=== PATIENT | female | born 1940 | race American Indian/Alaskan Native ===

== ENCOUNTER 2018-04-03 13:30 | Emergency (ER) | payer MEDICARE ==
--- NOTE | 2018-04-03 14:24 | Emergency Department Report ---
Eye Injury/Foreign Body - HPI Duration: 3 Days Eye Location: Right Severity: Mild Eye Symptoms: Eye Pain: No, Blurred Vision: No, Eye Redness: Yes, Grinding/Hammering Metal: No, Used Eye Protection: No, Contact Lens Use: No, Recalls Injury: No, Photophobia: No Other History: Patient is on Coumadin but denies having any injury to the eye. Patient denies any headache. Patient did get a iron infusion several days ago. ED Review of Systems ROS: Stated complaint: (R) EYE IRRIATION Other details as noted in HPI Comment: All other systems reviewed and negative ED Past Medical Hx - Past Medical History Hx Hypertension: Yes Hx Congestive Heart Failure: Yes Hx Diabetes: Yes Hx Asthma: Yes Additional medical history: mass on breast, Afib - Surgical History Hx Cholecystectomy: Yes (Gall stones) Hx Breast Surgery: Yes Additional Surgical History: Breast biopsy- positive for cancer - Social History Smoking Status: Never Smoker Substance Use Type: None - Medications Home Medications: Home Medications Medication Instructions Recorded Confirmed Last Taken Type Esomeprazole Magnesium [NexIUM] 40 mg PO DAILY 06/28/13 10/30/15 10/29/15 History Rosuvastatin (Nf) [Crestor] 20 mg PO DAILY 06/28/13 10/30/15 10/29/15 History Warfarin [Coumadin] 5 mg PO DAILY 06/28/13 10/30/15 10/29/15 History Insulin Glargine,Hum.rec.anlog 15 units SUB-Q HS #30 06/30/13 10/30/15 10/29/15 Rx [Lantus] Tamoxifen Citrate 20 mg PO QDAY 08/04/13 10/30/15 10/29/15 History ALBUTEROL Inhaler (OR & NICU) 2 puff IH QID PRN 10/30/15 10/30/15 10/29/15 History [Proair] ALPRAZolam [Xanax TAB] 0.25 mg PO BID 10/30/15 10/30/15 10/29/15 History Metoprolol Xl [Metoprolol 25 mg PO QDAY 10/30/15 10/30/15 10/29/15 History SUCCINATE ER TAB] Nystatin [Nystop Powder] 1 applicatio TP BID 10/30/15 10/30/15 10/29/15 History Venlafaxine HCl [Venlafaxine ER] 150 mg PO QDAY 10/30/15 10/30/15 10/29/15 History hydroCHLOROthiazide [HCTZ] 25 mg PO QDAY 10/30/15 10/30/15 10/29/15 History prednisoLONE ACETATE 1% [Pred 1 drops OU QID 10/30/15 10/30/15 10/29/15 History Forte 1%] Naphazoline HCl/Pheniramine 2 drops OP BID #1 bottle 04/03/18 Unknown Rx [Naphcon-A Eye Drops] Eye Injury Exam - Exam General: Vital signs noted. No distress. Alert and acting appropriately. Patient's right eye shows a medial soap conjunctival hemorrhage. This does not cross into the pupil. There is no hyphema. Extraocular movements are intact. ED Course Vital Signs 04/03/18 13:48 Temperature 98.6 F Pulse Rate 91 H Respiratory 16 Rate Blood Pressure 140/62 O2 Sat by Pulse 96 Oximetry ED Medical Decision Making - Medical Decision Making Patient has a simple subconjunctival hemorrhage secondary to her blood thinner. Patient has no evidence evidence of bleeding. Patient be discharged home. Critical care attestation.: If time is entered above; I have spent that time in minutes in the direct care of this critically ill patient, excluding procedure time. ED Disposition Clinical Impression: Subconjunctival hemorrhage of left eye Disposition: DC-01 TO HOME OR SELFCARE Is pt being admited?: No Does the pt Need Aspirin: No Condition: Stable Instructions: Subconjunctival Hemorrhage (ED) Time of Disposition: 14:23
== END 2018-04-03 14:31 | disposition home or self-care (01) ==
LOC: ED 13:30
DX: H11.32 Conjunctival hemorrhage, left eye (principal)
CPT/HCPCS: 99282

== ENCOUNTER 2020-06-15 18:33 | Emergency (ER) | payer MEDICARE ==
--- NOTE | 2020-06-15 20:32 | Event Note ---
ED Screening Note ED Screening Note: Patient presents for chest pain, shortness of breath, cough that has been ongoing since May 26 She reports that she had a Covid vaccine on May 26 and states that she has been feeling sick since then She also has a history of CHF This initial assessment/diagnostic orders/clinical plan/treatment(s) is/are subject to change based on patients health status, clinical progression and re- assessment by fellow clinical providers in the ED. Further treatment and workup at subsequent clinical providers discretion. Patient/guardian urged not to elope from the ED as their condition may be serious if not clinically assessed and managed. Initial orders include: Labs, x-ray, EKG
[2020-06-15 20:58] LABS: Basophils # (Auto) 0.1 K/mm3 (0.0-0.1); Basophils % (Auto) 0.8 % (0.0-1.8); Eosinophils % (Auto) 0.1 % (0.0-4.3); Hematocrit 42.6 % (30.3-42.9); Lymphocytes # (Auto) 4.5 K/mm3 (1.2-5.4); Lymphocytes % (Auto) 34.8 % (13.4-35.0); Mean Corpuscular HGB Conc 33 % (30-34); Mean Corpuscular Volume 81 fl (79-97); Monocytes # (Auto) 0.8 K/mm3 (0.0-0.8); Platelet Count 296 K/mm3 (140-440); Red Blood Count 5.25 M/mm3 (3.65-5.03); Red Cell Distribution Width 13.9 % (13.2-15.2)
[2020-06-15 21:24] LABS: Alanine Aminotransferase 9 units/L (7-56); Albumin 3.5 g/dL (3.9-5); BUN/Creatinine Ratio 8; Blood Urea Nitrogen 9 mg/dL (7-17); Calcium 9.2 mg/dL (8.4-10.2); Hemolysis Index 4
[2020-06-16] MEDS ORDERED: POTASSIUM CHLORIDE ER 20 MEQ TAB PO ONE (06:04)
[2020-06-16] MEDS ORDERED: SODIUM CHLORIDE 0.9% 1000 ML 1,000 ML IV ONE (06:41)
[2020-06-16] MEDS ORDERED: ONDANSETRON 4 MG/2 ML INJ IV ONE (06:41)
--- NOTE | 2020-06-16 06:43 | Emergency Department Report ---
ED General Adult HPI - General Chief complaint: Dyspnea/Respdistress Stated complaint: 1ST COVID VAC/FEELING SICK Time Seen by Provider: 06/15/20 20:30 Source: patient Mode of arrival: Ambulatory Limitations: No Limitations - History of Present Illness Initial comments: This is a 79-year-old female who states she has been feeling ill since receiving the Covid vaccine on 05/26/2020. In fact she tells me she has been to the emergency department already 3 times for the same. She thinks her first 2 visits were June 06 and . She went to [facility]. She was diagnosed with a viral illness. The only prescription she was given was ondansetron. She states that she has not been treated with an antibiotic. The patient is however a very poor historian. She complains of being hot in the room as her chief complaint but the room is certainly hot. She does not seem to discriminate between a current symptom and a chief complaint. In any case her symptoms have included malaise, production of a white sputum, some vague shortness of breath and occasional chest pain. When asked when her last episode of chest pain was she tells me it was in the waiting room and it was minimal both in intensity and seconds in duration. Does appear perhaps that the reason why the patient came to the emergency room last night is because she was "unable to eat". She states that she is hungry and that makes her nauseated. Patient has considerable comorbid conditions to include insulin-dependent diabetes, COPD and hypertension. She states that she lives alone but she has a daughter in town. She states she has a primary care physician who she has not seen recently and cannot get a near-term appointment. Review of the EMR is here indicates that she was treated for pyelonephritis in 2016: Hospitalization Condition: Stable Hospital course: 74 YO Female admitted for pyelonephritis. Pt treated with iv abx, IVF, and supportive care. Pt convalesced well during hospital course. Pt symptoms resolved with supportive care, pain control, and abx therapy. Pt medically optimized. Pt evaluated prior to discharge but no significant new physical exam findings. Pt discharged home and instructed to f/u pcp 1wk. 35 minutes dedicated to patient discharge and education. Pt abx called in to [facility] pharmacy on [facility] as per patient request. [phone]. Disposition: DISCHARGED TO HOME OR SELFCARE - Discharge Diagnoses (1) Pyelonephritis Status: Acute (2) Diabetes Status: Acute (3) Hypertension Status: Acute (4) DVT prophylaxis Status: Acute -: Gradual, week(s) Location: chest (Very occasionally) Radiation: non-radiation Quality: other (Hurting) Consistency: now resolved Improves with: none Worsens with: cold therapy Associated Symptoms: cough, fever/chills ("Feels hot". No documented fever. No report of chills.), malaise, nausea/vomiting, other (Anorexia) Treatments Prior to Arrival: other (Multiple emergency department visits) - Related Data Home Medications Medication Instructions Recorded Confirmed Last Taken Esomeprazole Magnesium [NexIUM] 40 mg PO DAILY 06/28/13 10/30/15 10/29/15 Rosuvastatin (Nf) [Crestor] 20 mg PO DAILY 06/28/13 10/30/15 10/29/15 Warfarin [Coumadin] 5 mg PO DAILY 06/28/13 10/30/15 10/29/15 Tamoxifen Citrate 20 mg PO QDAY 08/04/13 10/30/15 10/29/15 ALPRAZolam [Xanax TAB] 0.25 mg PO BID 10/30/15 10/30/15 10/29/15 Albuterol Mdi (or & Nicu Only) 2 puff IH QID PRN 10/30/15 10/30/15 10/29/15 [Proair] Metoprolol Xl [Metoprolol 25 mg PO QDAY 10/30/15 10/30/15 10/29/15 SUCCINATE ER TAB] Nystatin [Nystop Powder] 1 applicatio TP BID 10/30/15 10/30/15 10/29/15 Venlafaxine HCl [Venlafaxine ER] 150 mg PO QDAY 10/30/15 10/30/15 10/29/15 hydroCHLOROthiazide [HCTZ] 25 mg PO QDAY 10/30/15 10/30/15 10/29/15 prednisoLONE ACETATE 1% [Pred 1 drops OU QID 10/30/15 10/30/15 10/29/15 Forte 1%] Previous Rx's Medication Instructions Recorded Last Taken Type Insulin Glargine,Hum.rec.anlog 15 units SUB-Q HS #30 06/30/13 10/29/15 Rx [Lantus] Naphazoline HCl/Pheniramine 2 drops OP BID #1 bottle 04/03/18 Unknown Rx [Naphcon-A Eye Drops] Sulfamethoxazole/Trimethoprim 1 each PO BID #14 tablet 06/16/20 Unknown Rx [Bactrim DS TAB] Allergies Allergy/AdvReac Type Severity Reaction Status Date / Time No Known Allergies Allergy Unverified 06/28/13 17:16 ED Review of Systems ROS: Stated complaint: 1ST COVID VAC/FEELING SICK Other details as noted in HPI Constitutional: denies: chills, fever Eyes: denies: eye pain, eye discharge, vision change ENT: denies: ear pain, throat pain Respiratory: cough, shortness of breath. denies: wheezing Cardiovascular: chest pain. denies: palpitations Endocrine: no symptoms reported Gastrointestinal: denies: abdominal pain, nausea, diarrhea Genitourinary: denies: urgency, dysuria, discharge Musculoskeletal: denies: back pain, joint swelling, arthralgia Skin: denies: rash, lesions Neurological: denies: headache, weakness, paresthesias Psychiatric: denies: anxiety, depression Hematological/Lymphatic: denies: easy bleeding, easy bruising ED Past Medical Hx - Past Medical History Hx Hypertension: Yes Hx Congestive Heart Failure: Yes Hx Diabetes: Yes Hx Asthma: Yes Additional medical history: mass on breast- ON TAMOXIFIN - Surgical History Past Surgical History?: Yes Hx Cholecystectomy: Yes (Gall stones) Hx Breast Surgery: Yes Additional Surgical History: Breast biopsy- positive for cancer - Social History Smoking Status: Never Smoker Substance Use Type: None - Medications Home Medications: Home Medications Medication Instructions Recorded Confirmed Last Taken Type Esomeprazole Magnesium [NexIUM] 40 mg PO DAILY 06/28/13 10/30/15 10/29/15 History Rosuvastatin (Nf) [Crestor] 20 mg PO DAILY 06/28/13 10/30/15 10/29/15 History Warfarin [Coumadin] 5 mg PO DAILY 06/28/13 10/30/15 10/29/15 History Insulin Glargine,Hum.rec.anlog 15 units SUB-Q HS #30 06/30/13 10/30/15 10/29/15 Rx [Lantus] Tamoxifen Citrate 20 mg PO QDAY 08/04/13 10/30/15 10/29/15 History ALPRAZolam [Xanax TAB] 0.25 mg PO BID 10/30/15 10/30/15 10/29/15 History Albuterol Mdi (or & Nicu Only) 2 puff IH QID PRN 10/30/15 10/30/15 10/29/15 History [Proair] Metoprolol Xl [Metoprolol 25 mg PO QDAY 10/30/15 10/30/15 10/29/15 History SUCCINATE ER TAB] Nystatin [Nystop Powder] 1 applicatio TP BID 10/30/15 10/30/15 10/29/15 History Venlafaxine HCl [Venlafaxine ER] 150 mg PO QDAY 10/30/15 10/30/15 10/29/15 History hydroCHLOROthiazide [HCTZ] 25 mg PO QDAY 10/30/15 10/30/15 10/29/15 History prednisoLONE ACETATE 1% [Pred 1 drops OU QID 10/30/15 10/30/15 10/29/15 History Forte 1%] Naphazoline HCl/Pheniramine 2 drops OP BID #1 bottle 04/03/18 Unknown Rx [Naphcon-A Eye Drops] Sulfamethoxazole/Trimethoprim 1 each PO BID #14 tablet 06/16/20 Unknown Rx [Bactrim DS TAB] ED Physical Exam - General Limitations: Physical Limitation General appearance: obese - Head Head exam: Present: atraumatic, normocephalic - Eye Eye exam: Present: normal appearance. Absent: scleral icterus - ENT ENT exam: Present: mucous membranes dry (Somewhat) - Neck Neck exam: Present: normal inspection - Respiratory Respiratory exam: Present: normal lung sounds bilaterally. Absent: respiratory distress - Cardiovascular Cardiovascular Exam: Present: normal rhythm, tachycardia (Low 100s). Absent: systolic murmur, diastolic murmur, rubs, gallop - GI/Abdominal GI/Abdominal exam: Present: soft, normal bowel sounds. Absent: distended, tenderness, guarding, rebound, rigid - Extremities Exam Extremities exam: Present: normal inspection - Back Exam Back exam: Present: normal inspection - Neurological Exam Neurological exam: Present: alert, oriented X3, CN II-XII intact. Absent: motor sensory deficit - Psychiatric Psychiatric exam: Present: normal mood, flat affect - Skin Skin exam: Present: warm, dry, intact, normal color. Absent: rash ED Course Vital Signs 06/15/20 06/16/20 06/16/20 20:25 04:04 04:05 Temperature 98.2 F Pulse Rate 94 H 95 H 93 H Respiratory 19 20 15 Rate Blood Pressure 187/92 176/82 O2 Sat by Pulse 96 96 96 Oximetry 06/16/20 06/16/20 06/16/20 04:06 04:08 04:10 Temperature Pulse Rate 91 H 92 H 102 H Respiratory 14 13 13 Rate Blood Pressure 176/82 176/82 176/82 O2 Sat by Pulse 97 97 96 Oximetry 06/16/20 06/16/20 06/16/20 04:12 04:14 04:16 Temperature Pulse Rate 91 H 84 91 H Respiratory 16 12 13 Rate Blood Pressure 176/82 176/82 190/89 O2 Sat by Pulse 95 97 95 Oximetry 06/16/20 06/16/20 06/16/20 04:18 04:20 04:22 Temperature Pulse Rate 91 H 88 98 H Respiratory 12 15 13 Rate Blood Pressure 190/89 190/89 190/89 O2 Sat by Pulse 97 98 96 Oximetry 06/16/20 06/16/20 06/16/20 04:24 04:26 04:28 Temperature Pulse Rate 94 H 95 H 86 Respiratory 15 15 12 Rate Blood Pressure 190/89 190/89 190/89 O2 Sat by Pulse 98 93 97 Oximetry 06/16/20 06/16/20 06/16/20 04:30 04:31 04:32 Temperature Pulse Rate 91 H 90 95 H Respiratory 15 14 13 Rate Blood Pressure 190/89 180/88 180/88 O2 Sat by Pulse 98 95 94 Oximetry 06/16/20 06/16/20 06/16/20 04:34 04:36 04:38 Temperature Pulse Rate 92 H 84 77 Respiratory 11 L 13 16 Rate Blood Pressure 180/88 180/88 180/88 O2 Sat by Pulse 97 94 95 Oximetry 06/16/20 06/16/20 06/16/20 04:40 04:42 04:44 Temperature Pulse Rate 83 82 87 Respiratory 13 13 15 Rate Blood Pressure 180/88 180/88 180/88 O2 Sat by Pulse 97 96 96 Oximetry 06/16/20 06/16/20 06/16/20 04:46 04:48 04:50 Temperature Pulse Rate 83 90 84 Respiratory 15 17 13 Rate Blood Pressure 191/99 191/99 191/99 O2 Sat by Pulse 94 96 96 Oximetry 06/16/20 06/16/20 06/16/20 04:52 04:54 04:56 Temperature Pulse Rate 84 80 83 Respiratory 12 17 14 Rate Blood Pressure 191/99 191/99 191/99 O2 Sat by Pulse 95 96 95 Oximetry 06/16/20 06/16/20 06/16/20 04:58 05:00 05:01 Temperature Pulse Rate 82 88 91 H Respiratory 14 12 13 Rate Blood Pressure 191/99 191/99 187/88 O2 Sat by Pulse 96 97 88 Oximetry 06/16/20 06/16/20 06/16/20 05:02 05:04 05:06 Temperature Pulse Rate 95 H 81 82 Respiratory 15 15 17 Rate Blood Pressure 187/88 187/88 187/88 O2 Sat by Pulse 96 97 96 Oximetry 06/16/20 06/16/20 06/16/20 05:08 05:10 05:12 Temperature Pulse Rate 86 78 84 Respiratory 17 14 17 Rate Blood Pressure 187/88 187/88 187/88 O2 Sat by Pulse 94 95 94 Oximetry 06/16/20 06/16/20 06/16/20 05:14 05:16 05:18 Temperature Pulse Rate 82 80 85 Respiratory 16 14 17 Rate Blood Pressure 187/88 176/90 176/90 O2 Sat by Pulse 96 94 94 Oximetry 06/16/20 06/16/20 06/16/20 05:20 05:22 05:24 Temperature Pulse Rate 83 84 84 Respiratory 17 17 17 Rate Blood Pressure 176/90 176/90 176/90 O2 Sat by Pulse 95 94 94 Oximetry 06/16/20 06/16/20 06/16/20 05:26 05:28 05:30 Temperature Pulse Rate 85 84 82 Respiratory 16 16 16 Rate Blood Pressure 176/90 176/90 176/90 O2 Sat by Pulse 94 95 95 Oximetry 06/16/20 06/16/20 06/16/20 05:31 05:32 05:34 Temperature Pulse Rate 86 82 83 Respiratory 18 17 16 Rate Blood Pressure 171/94 171/94 171/94 O2 Sat by Pulse 93 95 94 Oximetry 06/16/20 06/16/20 06/16/20 05:36 05:38 05:40 Temperature Pulse Rate 85 83 85 Respiratory 16 16 17 Rate Blood Pressure 171/94 171/94 171/94 O2 Sat by Pulse 94 94 94 Oximetry 06/16/20 06/16/20 06/16/20 05:42 05:44 05:46 Temperature Pulse Rate 85 83 87 Respiratory 17 17 17 Rate Blood Pressure 171/94 171/94 170/87 O2 Sat by Pulse 93 94 93 Oximetry 06/16/20 06/16/20 06/16/20 05:48 05:50 05:52 Temperature Pulse Rate 84 86 90 Respiratory 17 13 17 Rate Blood Pressure 170/87 170/87 170/87 O2 Sat by Pulse 93 95 94 Oximetry 06/16/20 06/16/20 06/16/20 05:54 05:56 05:58 Temperature Pulse Rate 86 85 84 Respiratory 16 17 17 Rate Blood Pressure 170/87 170/87 170/87 O2 Sat by Pulse 94 94 94 Oximetry 06/16/20 06/16/20 06/16/20 06:00 06:01 06:02 Temperature Pulse Rate 90 83 82 Respiratory 17 16 16 Rate Blood Pressure 170/87 169/83 169/83 O2 Sat by Pulse 93 94 94 Oximetry 06/16/20 06/16/20 06/16/20 06:04 06:06 06:08 Temperature Pulse Rate 87 88 89 Respiratory 17 17 18 Rate Blood Pressure 169/83 169/83 169/83 O2 Sat by Pulse 93 93 93 Oximetry 06/16/20 06/16/20 06/16/20 06:10 07:15 09:04 Temperature Pulse Rate 86 102 H Respiratory 17 18 21 Rate Blood Pressure 169/83 128/88 O2 Sat by Pulse 94 98 95 Oximetry 06/16/20 06/16/20 06/16/20 09:06 09:08 09:10 Temperature Pulse Rate 87 84 98 H Respiratory 15 19 20 Rate Blood Pressure 128/88 128/88 128/88 O2 Sat by Pulse 96 95 90 Oximetry 06/16/20 06/16/20 06/16/20 09:12 09:14 09:16 Temperature Pulse Rate 90 88 81 Respiratory 20 19 17 Rate Blood Pressure 128/88 128/88 128/88 O2 Sat by Pulse 96 95 94 Oximetry 06/16/20 06/16/20 06/16/20 09:18 09:20 09:22 Temperature Pulse Rate 85 85 96 H Respiratory 18 18 17 Rate Blood Pressure 155/113 155/113 155/113 O2 Sat by Pulse 94 93 94 Oximetry 06/16/20 06/16/20 06/16/20 09:24 09:26 09:28 Temperature Pulse Rate 97 H 87 84 Respiratory 16 17 17 Rate Blood Pressure 155/113 155/113 155/113 O2 Sat by Pulse 96 95 95 Oximetry 06/16/20 06/16/20 06/16/20 09:30 09:32 09:34 Temperature Pulse Rate 90 81 84 Respiratory 19 18 17 Rate Blood Pressure 155/113 155/113 155/113 O2 Sat by Pulse 95 93 95 Oximetry 06/16/20 06/16/20 06/16/20 09:36 09:38 09:40 Temperature Pulse Rate 90 90 91 H Respiratory 14 17 14 Rate Blood Pressure 155/113 155/113 155/113 O2 Sat by Pulse 95 95 92 Oximetry 06/16/20 06/16/20 06/16/20 09:42 09:44 09:46 Temperature Pulse Rate 101 H 110 H 107 H Respiratory 13 25 H 22 Rate Blood Pressure 155/113 155/113 155/113 O2 Sat by Pulse 96 76 L 93 Oximetry 06/16/20 06/16/20 06/16/20 09:48 09:50 09:52 Temperature Pulse Rate 87 90 84 Respiratory 14 13 11 L Rate Blood Pressure 155/113 155/113 155/113 O2 Sat by Pulse 96 97 97 Oximetry 06/16/20 06/16/20 06/16/20 09:54 09:56 09:58 Temperature Pulse Rate 89 85 81 Respiratory 18 15 16 Rate Blood Pressure 155/113 155/113 155/113 O2 Sat by Pulse 96 95 94 Oximetry 06/16/20 06/16/20 06/16/20 10:00 10:01 10:02 Temperature Pulse Rate 84 86 83 Respiratory 17 19 13 Rate Blood Pressure 155/113 143/76 143/76 O2 Sat by Pulse 96 95 98 Oximetry 06/16/20 06/16/20 06/16/20 10:04 10:06 10:08 Temperature Pulse Rate 85 85 84 Respiratory 15 17 20 Rate Blood Pressure 143/76 143/76 143/76 O2 Sat by Pulse 94 94 94 Oximetry 06/16/20 06/16/20 06/16/20 10:10 10:12 10:14 Temperature Pulse Rate 86 84 85 Respiratory 20 19 17 Rate Blood Pressure 143/76 143/76 143/76 O2 Sat by Pulse 95 94 96 Oximetry 06/16/20 06/16/20 06/16/20 10:16 10:18 10:20 Temperature Pulse Rate 85 85 93 H Respiratory 19 19 18 Rate Blood Pressure 143/76 143/76 143/76 O2 Sat by Pulse 94 93 94 Oximetry 06/16/20 06/16/20 06/16/20 10:22 10:24 10:26 Temperature Pulse Rate 87 96 H 90 Respiratory 18 18 17 Rate Blood Pressure 143/76 143/76 143/76 O2 Sat by Pulse 95 94 94 Oximetry 06/16/20 06/16/20 06/16/20 10:28 10:30 10:32 Temperature Pulse Rate 87 93 H 85 Respiratory 19 20 18 Rate Blood Pressure 143/76 143/76 143/76 O2 Sat by Pulse 92 93 93 Oximetry 06/16/20 06/16/20 06/16/20 10:34 10:36 10:38 Temperature Pulse Rate 93 H 89 91 H Respiratory 16 19 18 Rate Blood Pressure 143/76 143/76 143/76 O2 Sat by Pulse 97 95 96 Oximetry 06/16/20 10:40 Temperature Pulse Rate 87 Respiratory 17 Rate Blood Pressure 143/76 O2 Sat by Pulse 95 Oximetry ED Medical Decision Making - Lab Data Result diagrams: 06/15/20 20:45 06/16/20 07:09 Laboratory Results - last 24 hr 06/15/20 06/15/20 20:45 20:45 WBC 13.0 H RBC 5.25 H Hgb 14.0 Hct 42.6 MCV 81 MCH 27 L MCHC 33 RDW 13.9 Plt Count 296 Lymph % (Auto) 34.8 [place] % (Auto) 6.0 Eos % (Auto) 0.1 Baso % (Auto) 0.8 Lymph # (Auto) 4.5 [place] # (Auto) 0.8 Eos # (Auto) 0.0 Baso # (Auto) 0.1 Seg Neutrophils % 58.3 Seg Neutrophils # 7.6 Sodium 140 Potassium 3.1 L Chloride 100.7 Carbon Dioxide 26 Anion Gap 16 BUN 9 Creatinine 1.1 Estimated GFR 58 BUN/Creatinine Ratio 8 Glucose 160 H Calcium 9.2 Total Bilirubin 0.30 AST 18 ALT 9 Alkaline Phosphatase 67 Troponin T < 0.010 NT-Pro-B Natriuret Pep 536.1 Total Protein 7.2 Albumin 3.5 L Albumin/Globulin Ratio 0.9 Laboratory Results - last 24 hr 06/15/20 06/15/20 06/16/20 20:45 20:45 07:09 WBC 13.0 H RBC 5.25 H Hgb 14.0 Hct 42.6 MCV 81 MCH 27 L MCHC 33 RDW 13.9 Plt Count 296 Lymph % (Auto) 34.8 [place] % (Auto) 6.0 Eos % (Auto) 0.1 Baso % (Auto) 0.8 Lymph # (Auto) 4.5 [place] # (Auto) 0.8 Eos # (Auto) 0.0 Baso # (Auto) 0.1 Seg Neutrophils % 58.3 Seg Neutrophils # 7.6 PT INR APTT D-Dimer Sodium 140 Potassium 3.1 L Chloride 100.7 Carbon Dioxide 26 Anion Gap 16 BUN 9 Creatinine 1.1 Estimated GFR 58 BUN/Creatinine Ratio 8 Glucose 160 H 154 H Lactic Acid Calcium 9.2 Total Bilirubin 0.30 AST 18 ALT 9 Alkaline Phosphatase 67 Lactate Dehydrogenase 182 H Troponin T < 0.010 C-Reactive Protein 1.00 NT-Pro-B Natriuret Pep 536.1 Total Protein 7.2 Albumin 3.5 L Albumin/Globulin Ratio 0.9 06/16/20 06/16/20 07:09 07:09 WBC RBC Hgb Hct MCV MCH MCHC RDW Plt Count Lymph % (Auto) [place] % (Auto) Eos % (Auto) Baso % (Auto) Lymph # (Auto) [place] # (Auto) Eos # (Auto) Baso # (Auto) Seg Neutrophils % Seg Neutrophils # PT 15.0 H INR 1.20 H APTT 27.7 D-Dimer 179.53 Sodium Potassium Chloride Carbon Dioxide Anion Gap BUN Creatinine Estimated GFR BUN/Creatinine Ratio Glucose Lactic Acid 1.20 Calcium Total Bilirubin AST ALT Alkaline Phosphatase Lactate Dehydrogenase Troponin T C-Reactive Protein NT-Pro-B Natriuret Pep Total Protein Albumin Albumin/Globulin Ratio Laboratory Results - last 24 hr 06/15/20 06/15/20 06/16/20 20:45 20:45 07:09 WBC 13.0 H RBC 5.25 H Hgb 14.0 Hct 42.6 MCV 81 MCH 27 L MCHC 33 RDW 13.9 Plt Count 296 Lymph % (Auto) 34.8 [place] % (Auto) 6.0 Eos % (Auto) 0.1 Baso % (Auto) 0.8 Lymph # (Auto) 4.5 [place] # (Auto) 0.8 Eos # (Auto) 0.0 Baso # (Auto) 0.1 Seg Neutrophils % 58.3 Seg Neutrophils # 7.6 PT INR APTT D-Dimer Sodium 140 Potassium 3.1 L Chloride 100.7 Carbon Dioxide 26 Anion Gap 16 BUN 9 Creatinine 1.1 Estimated GFR 58 BUN/Creatinine Ratio 8 Glucose 160 H 154 H Lactic Acid Calcium 9.2 Ferritin Total Bilirubin 0.30 AST 18 ALT 9 Alkaline Phosphatase 67 Lactate Dehydrogenase 182 H Troponin T < 0.010 C-Reactive Protein 1.00 NT-Pro-B Natriuret Pep 536.1 Total Protein 7.2 Albumin 3.5 L Albumin/Globulin Ratio 0.9 06/16/20 06/16/20 06/16/20 07:09 07:09 07:09 WBC RBC Hgb Hct MCV MCH MCHC RDW Plt Count Lymph % (Auto) [place] % (Auto) Eos % (Auto) Baso % (Auto) Lymph # (Auto) [place] # (Auto) Eos # (Auto) Baso # (Auto) Seg Neutrophils % Seg Neutrophils # PT 15.0 H INR 1.20 H APTT 27.7 D-Dimer 179.53 Sodium Potassium Chloride Carbon Dioxide Anion Gap BUN Creatinine Estimated GFR BUN/Creatinine Ratio Glucose Lactic Acid 1.20 Calcium Ferritin 130.7 Total Bilirubin AST ALT Alkaline Phosphatase Lactate Dehydrogenase Troponin T C-Reactive Protein NT-Pro-B Natriuret Pep Total Protein Albumin Albumin/Globulin Ratio - EKG Data -: EKG Interpreted by Nv EKG shows normal: sinus rhythm, axis, intervals, QRS complexes, ST-T waves Rate: normal - EKG Data Interpretation: no acute changes, other (Right bundle branch block, left anterior fascicular block.) - Radiology Data Radiology results: report reviewed (No acute process on chest x-ray), image reviewed Critical care attestation.: If time is entered above; I have spent that time in minutes in the direct care of this critically ill patient, excluding procedure time. ED Disposition Clinical Impression: URI, acute Adverse effects of medication Qualifiers: Encounter type: initial encounter Qualified Code(s): T50.905A - Adverse effect of unspecified drugs, medicaments and biological substances, initial encounter Disposition: DC-01 TO HOME OR SELFCARE Is pt being admited?: No Does the pt Need Aspirin: No Condition: Stable Instructions: Viral Respiratory Infection, [id number], Upper Respiratory Infe ction, Adult, [id number] Additional Instructions: Follow-up with your primary care physician. If you are unable you may try [facility]. We will try an antibiotic. Return to the emergency department any acute change or problem. Prescriptions: Sulfamethoxazole/Trimethoprim [Bactrim DS TAB] 1 each PO BID #14 tablet Referrals: PRIMARY CARE,MD [Primary Care Provider] - 3-5 Days [facility] [Provider Group] - 3-5 Days Time of Disposition: 11:14
[2020-06-16 07:49] LABS: INR 1.2 (0.87-1.13); Partial Thromboplastin Time 27.7 Sec. (24.2-36.6)
[2020-06-16 10:37] LABS: Bilirubin,Urine NEG (Negative); Blood,Urine NEG (Negative); Color,Urine Yellow (Yellow); Mucus,Urine FEW /HPF; Protein,Urine <15 mg/dL mg/dL (Negative); Urobilinogen,Urine < 2.0 mg/dL (<2.0)
[2020-06-16 13:09] VITALS: BP 149/75
--- NOTE | 2020-06-16 17:13 | Electrocardiograph Report ---
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
== END 2020-06-16 11:30 | disposition home or self-care (01) ==
LOC: ED 18:33
DX: R50.9 Fever, unspecified (principal); T50.905A Adverse effect of unspecified drugs, medicaments and biological substances, initial encounter; J06.9 Acute upper respiratory infection, unspecified; Z20.822 Contact with and (suspected) exposure to COVID-19; I11.0 Hypertensive heart disease with heart failure; I50.9 Heart failure, unspecified; E11.9 Type 2 diabetes mellitus without complications; J45.909 Unspecified asthma, uncomplicated; Z90.49 Acquired absence of other specified parts of digestive tract; Z98.890 Other specified postprocedural states; Z79.4 Long term (current) use of insulin; Z79.899 Other long term (current) drug therapy; Y92.89 Other specified places as the place of occurrence of the external cause
CPT/HCPCS: 36415; 71046; 80053; 81001; 82140; 82728; 82947; 83615; 83880; 84145; 84484; 85025; 85379; 85610; 85730; 86140; 87040; 93005; 96361; 96374; 99284; J2405; J7030; U0003

== ENCOUNTER 2020-11-09 15:18 | Emergency (ER) | payer MEDICARE ==
[2020-11-09 15:29] VITALS: BP 145/89
[2020-11-09] MEDS ORDERED: ONDANSETRON 4 MG ODT TAB PO ONE ×3 (15:40→18:54)
--- NOTE | 2020-11-09 15:41 | Event Note ---
ED Screening Note Date of service: 11/09/20 Time: 15:40 ED Screening Note: Patient complains of nausea and vomiting, left-sided chest pain, mild shortness of breath, and right sided back pain History of COPD, CHF, diabetes Admits to urinary frequency Denies cough This initial assessment/diagnostic orders/clinical plan/treatment(s) is/are subject to change based on patients health status, clinical progression and re- assessment by fellow clinical providers in the ED. Further treatment and workup at subsequent clinical providers discretion. Patient/guardian urged not to elope from the ED as their condition may be serious if not clinically assessed and managed. Initial orders include: Labs EKG Chest x-ray Zofran ODT
[2020-11-09 16:25] LABS: Basophils # (Auto) 0.1 K/mm3 (0.0-0.1); Basophils % (Auto) 0.9 % (0.0-1.8); Eosinophils % (Auto) 0.1 % (0.0-4.3); Hematocrit 45.1 % (30.3-42.9); Hemoglobin 14.1 gm/dl (10.1-14.3); Lymphocytes % (Auto) 34.9 % (13.4-35.0); Mean Corpuscular HGB Conc 31 % (30-34); Mean Corpuscular Volume 81 fl (79-97); Monocytes # (Auto) 0.5 K/mm3 (0.0-0.8); Monocytes % (Auto) 3.9 % (0.0-7.3); Platelet Count 282 K/mm3 (140-440); Red Blood Count 5.59 M/mm3 (3.65-5.03); Red Cell Distribution Width 14.3 % (13.2-15.2)
--- NOTE | 2020-11-09 16:27 | XRay Report ---
CHEST 2 VIEWS INDICATION / CLINICAL INFORMATION: chest pain. COMPARISON: October 15, 2020 FINDINGS: SUPPORT DEVICES: None. HEART / MEDIASTINUM: No significant abnormality. LUNGS / PLEURA: No significant pulmonary or pleural abnormality. No pneumothorax. ADDITIONAL FINDINGS: No significant additional findings. IMPRESSION: 1. No significant interval change since prior exam Signer Name: Howard Cabrera MD Signed: 11/09/2020 4:23 PM Workstation Name: [id number]
--- NOTE | 2020-11-09 16:28 | XRay Report ---
Abdomen 3 views INDICATION: Abdominal pain FINDINGS: Nonspecific bowel gas pattern. No free air is seen. Mild constipation. No large calcificati ons. No acute bone findings. Signer Name: Howard Cabrera MD Signed: 11/09/2020 4:24 PM Workstation Name: [email or web address]
[2020-11-09 16:31] LABS: Alanine Aminotransferase 6 units/L (7-56); Albumin 3.9 g/dL (3.9-5); BUN/Creatinine Ratio 11; Blood Urea Nitrogen 11 mg/dL (7-17); Calcium 9.7 mg/dL (8.4-10.2); Hemolysis Index 14
--- NOTE | 2020-11-09 17:02 | Emergency Department Report ---
HPI - General Chief Complaint: Abdominal Pain Time Seen by Provider: 11/09/20 15:31 - HPI HPI: I explained to the patient that, given this current pandemic, we do not have any available private rooms at this moment for our initial conversation and examina tion. I offered to wait until a more private space becomes available, but the patient has agreed to proceed with the H&P. This is a 79-year-old -[place] Island[place] female presents to the emergency [facility] with complaint of a 2-day history of feeling hot and cold intermittently, some low back pain, nausea without vomiting. The patient also says that she had some intermittent chest pains last night but that has since resolved. She says that she developed some lower abdominal pain this morning. Patient has a past medical history of COPD, CHF, asthma, diabetes. She denies any fever, cough, shortness of breath, lower extremity swelling, diarrhea. She has not taken anything for symptoms prior to presentation today. The patient has an appointment with her PCP on the and an appointment with her administrative medical director the next day, both through [place]. No recent travel or sick contacts at home. The patient is vaccinated against COVID-19. ED Past Medical Hx - Past Medical History Previous Medical History?: Yes Hx Hypertension: Yes Hx Congestive Heart Failure: Yes Hx Diabetes: Yes Hx Asthma: Yes Additional medical history: mass on breast- ON TAMOXIFIN - Surgical History Past Surgical History?: Yes Hx Cholecystectomy: Yes (Gall stones) Hx Breast Surgery: Yes Additional Surgical History: Breast biopsy- positive for cancer - Social History Smoking Status: Never Smoker - Medications Home Medications: Home Medications Medication Instructions Recorded Confirmed Last Taken Type Esomeprazole Magnesium [NexIUM] 40 mg PO DAILY 06/28/13 10/30/15 10/29/15 History Rosuvastatin (Nf) [Crestor] 20 mg PO DAILY 06/28/13 10/30/15 10/29/15 History Warfarin [Coumadin] 5 mg PO DAILY 06/28/13 10/30/15 10/29/15 History Insulin Glargine,Hum.rec.anlog 15 units SUB-Q HS #30 06/30/13 10/30/15 10/29/15 Rx [Lantus VIAL] Tamoxifen Citrate 20 mg PO QDAY 08/04/13 10/30/15 10/29/15 History ALPRAZolam [Xanax TAB] 0.25 mg PO BID 10/30/15 10/30/15 10/29/15 History Albuterol Mdi (or & Nicu Only) 2 puff IH QID PRN 10/30/15 10/30/15 10/29/15 History [Proair] Metoprolol Xl [Metoprolol 25 mg PO QDAY 10/30/15 10/30/15 10/29/15 History SUCCINATE ER TAB] Nystatin [Nystop Powder] 1 applicatio TP BID 10/30/15 10/30/15 10/29/15 History Venlafaxine HCl [Venlafaxine ER] 150 mg PO QDAY 10/30/15 10/30/15 10/29/15 History hydroCHLOROthiazide [HCTZ] 25 mg PO QDAY 10/30/15 10/30/15 10/29/15 History prednisoLONE ACETATE 1% [Pred 1 drops OU QID 10/30/15 10/30/15 10/29/15 History Forte 1%] Naphazoline HCl/Pheniramine 2 drops OP BID #1 bottle 04/03/18 Unknown Rx [Naphcon-A Eye Drops] Sulfamethoxazole/Trimethoprim 1 each PO BID #14 tablet 06/16/20 Unknown Rx [Bactrim DS TAB] ED Review of Systems ROS: Stated complaint: BACK/GENERAL PAIN Other details as noted in HPI Comment: All other systems reviewed and negative Constitutional: chills, diaphoresis. denies: fever Eyes: denies: eye pain, vision change ENT: denies: ear pain, throat pain Respiratory: denies: cough, shortness of breath Cardiovascular: chest pain (Last night, resolved). denies: palpitations, edema Gastrointestinal: abdominal pain, nausea. denies: vomiting, diarrhea, constipat ion Genitourinary: denies: dysuria, discharge Musculoskeletal: back pain. denies: arthralgia Skin: denies: rash, lesions Neurological: denies: headache, numbness, paresthesias Physical Exam - Physical Exam Vital Signs: Vital Signs 11/09/20 15:26 Temperature 98.8 F Pulse Rate 89 Respiratory 16 Rate Blood Pressure 145/89 [Right] O2 Sat by Pulse 98 Oximetry Physical Exam: GENERAL: The patient is well-developed well-nourished. HENT: Normocephalic. Atraumatic. Patient has moist mucous membranes. EYES: Extraocular motions are intact. No nystagmus. NECK: Supple. Trachea is midline. CHEST/LUNGS: Clear to auscultation. There is no respiratory distress noted. HEART/CARDIOVASCULAR: Regular. There is no tachycardia. There is no murmur. ABDOMEN: Abdomen is soft. There is some mild lower abdominal tenderness to palpation. No guarding. Patient has normal bowel sounds. There is no abdominal distention. SKIN: Skin is warm and dry. NEURO: The patient is awake, alert, and oriented. The patient is cooperative. The patient has no focal neurologic deficits. Normal speech. Cranial nerves II through XII grossly intact. MUSCULOSKELETAL: There is no tenderness or deformity. There is no limitation range of motion. ED Course Vital Signs 11/09/20 15:26 Temperature 98.8 F Pulse Rate 89 Respiratory 16 Rate Blood Pressure 145/89 [Right] O2 Sat by Pulse 98 Oximetry ED Medical Decision Making - Lab Data Result diagrams: 11/09/20 15:43 11/09/20 15:43 Lab Results 11/09/20 11/09/20 11/09/20 Range/Units 15:43 15:43 15:59 WBC 11.6 H (4.5-11.0) K/mm3 RBC 5.59 H (3.65-5.03) M/mm3 Hgb 14.1 (10.1-14.3) gm/dl Hct 45.1 H (30.3-42.9) % MCV 81 (79-97) fl MCH 25 L (28-32) pg MCHC 31 (30-34) % RDW 14.3 (13.2-15.2) % Plt Count 282 (140-440) K/mm3 Lymph % (Auto) 34.9 (13.4-35.0) % [place] % (Auto) 3.9 (0.0-7.3) % Eos % (Auto) 0.1 (0.0-4.3) % Baso % (Auto) 0.9 (0.0-1.8) % Lymph # (Auto) 4.0 (1.2-5.4) K/mm3 [place] # (Auto) 0.5 (0.0-0.8) K/mm3 Eos # (Auto) 0.0 (0.0-0.4) K/mm3 Baso # (Auto) 0.1 (0.0-0.1) K/mm3 Seg Neutrophils % 60.2 (40.0-70.0) % Seg Neutrophils # 7.0 (1.8-7.7) K/mm3 Sodium 140 (137-145) mmol/L Potassium 3.9 (3.6-5.0) mmol/L Chloride 103.5 (98-107) mmol/L Carbon Dioxide 25 (22-30) mmol/L Anion Gap 15 mmol/L BUN 11 (7-17) mg/dL Creatinine 1.0 (0.6-1.2) mg/dL Estimated GFR > 60 ml/min BUN/Creatinine Ratio 11 % Glucose 173 H (65-100) mg/dL Calcium 9.7 (8.4-10.2) mg/dL Total Bilirubin 0.20 (0.1-1.2) mg/dL AST 16 (5-40) units/L ALT 6 L (7-56) units/L Alkaline Phosphatase 71 (35-129) units/L Troponin T < 0.010 (0.00-0.029) ng/mL NT-Pro-B Natriuret Pep 721.3 (0-900) pg/mL Total Protein 7.6 (6.3-8.2) g/dL Albumin 3.9 (3.9-5) g/dL Albumin/Globulin Ratio 1.1 % TSH 1.130 (0.270-4.200) mlU/mL Urine Color (Yellow) Urine Turbidity (Clear) Urine pH (5.0-7.0) Ur Specific [place] (1.003-1.030) Urine Protein (Negative) mg/dL Urine Glucose (UA) (Negative) mg/dL Urine Ketones (Negative) mg/dL Urine Blood (Negative) Urine Nitrite (Negative) Urine Bilirubin (Negative) Urine Urobilinogen (<2.0) mg/dL Ur Leukocyte Esterase (Negative) Urine WBC (Auto) (0.0-6.0) /HPF Urine RBC (Auto) (0.0-6.0) /HPF U Epithel Cells (Auto) (0-13.0) /HPF Urine Bacteria (Auto) (Negative) /HPF Hyaline Casts /LPF Urine Mucus /HPF Urine Yeast (Budding) /HPF 11/09/20 Range/Units Unknown WBC (4.5-11.0) K/mm3 RBC (3.65-5.03) M/mm3 Hgb (10.1-14.3) gm/dl Hct (30.3-42.9) % MCV (79-97) fl MCH (28-32) pg MCHC (30-34) % RDW (13.2-15.2) % Plt Count (140-440) K/mm3 Lymph % (Auto) (13.4-35.0) % [place] % (Auto) (0.0-7.3) % Eos % (Auto) (0.0-4.3) % Baso % (Auto) (0.0-1.8) % Lymph # (Auto) (1.2-5.4) K/mm3 [place] # (Auto) (0.0-0.8) K/mm3 Eos # (Auto) (0.0-0.4) K/mm3 Baso # (Auto) (0.0-0.1) K/mm3 Seg Neutrophils % (40.0-70.0) % Seg Neutrophils # (1.8-7.7) K/mm3 Sodium (137-145) mmol/L Potassium (3.6-5.0) mmol/L Chloride (98-107) mmol/L Carbon Dioxide (22-30) mmol/L Anion Gap mmol/L BUN (7-17) mg/dL Creatinine (0.6-1.2) mg/dL Estimated GFR ml/min BUN/Creatinine Ratio % Glucose (65-100) mg/dL Calcium (8.4-10.2) mg/dL Total Bilirubin (0.1-1.2) mg/dL AST (5-40) units/L ALT (7-56) units/L Alkaline Phosphatase (35-129) units/L Troponin T (0.00-0.029) ng/mL NT-Pro-B Natriuret Pep (0-900) pg/mL Total Protein (6.3-8.2) g/dL Albumin (3.9-5) g/dL Albumin/Globulin Ratio % TSH (0.270-4.200) mlU/mL Urine Color Yellow (Yellow) Urine Turbidity Slightly-cloudy (Clear) Urine pH 5.0 (5.0-7.0) Ur Specific [place] 1.019 (1.003-1.030) Urine Protein 30 mg/dl (Negative) mg/dL Urine Glucose (UA) Neg (Negative) mg/dL Urine Ketones Neg (Negative) mg/dL Urine Blood Neg (Negative) Urine Nitrite Neg (Negative) Urine Bilirubin Neg (Negative) Urine Urobilinogen < 2.0 (<2.0) mg/dL Ur Leukocyte Esterase Neg (Negative) Urine WBC (Auto) 2.0 (0.0-6.0) /HPF Urine RBC (Auto) 4.0 (0.0-6.0) /HPF U Epithel Cells (Auto) 10.0 (0-13.0) /HPF Urine Bacteria (Auto) 1+ (Negative) /HPF Hyaline Casts 1 /LPF Urine Mucus 1+ /HPF Urine Yeast (Budding) Few /HPF - EKG Data -: EKG Interpreted by Me EKG shows normal: sinus rhythm, axis (Left axis deviation), intervals (Prolonged QTC), QRS complexes (Right bundle branch block), ST-T waves Rate: normal - EKG Data When compared to previous EKG there are: changes noted (Previous EKG also showed a left anterior fascicular block on top of the right bundle branch block) Interpretation: other (Sinus rhythm at 87 bpm, left axis deviation, right bundle branch block, prolonged QTC. No ST elevation VA) - Radiology Data Radiology results: report reviewed, image reviewed interpreted by me: Chest x-ray does not show any acute process. There are no pleural effusions, obvious pneumonia and there is no pneumothorax. No widened mediastinum. Abdominal x-ray shows nonspecific nonobstructive bowel gas. No free air. CT ABDOMEN AND PELVIS WITHOUT CONTRAST INDICATION / CLINICAL INFORMATION: Abd pain. TECHNIQUE: Axial CT images were obtained through the abdomen and pelvis without IV contrast. All CT scans at this location are performed using CT dose reduction for ALARA by means of automated exposure control. COMPARISON: 10/30/2015. FINDINGS: LOWER CHEST: No significant abnormality. LIVER: No significant abnormality. GALLBLADDER: No significant abnormality. BILE DUCTS: No significant abnormality. PANCREAS: Calcifications without acute abnormality. SPLEEN: No significant abnormality. ADRENALS: No significant abnormality. RIGHT KIDNEY / URETER: No significant abnormality. LEFT KIDNEY / URETER: No significant abnormality. STOMACH / SMALL BOWEL: No significant abnormality. COLON: Diffuse diverticulosis without acute diverticulitis. APPENDIX: N onvisualized PERITONEUM: No free fluid. No free air. No fluid collection. LYMPH NODES: No significant adenopathy. AORTA / ARTERIES: Mild atherosclerotic calcification without acute abnormality. IVC / VEINS: No significant abnormality. URINARY BLADDER: No significant abnormality. REPRODUCTIVE ORGANS: No significant abnormality. ADDITIONAL FINDINGS: None. SKELETAL SYSTEM: No acute abnormality. IMPRESSION: 1. Negative for acute abdominopelvic abnormality. 2. Diffuse colonic diverticulosis without evidence of diverticulitis. 3. Other chronic findings as above. - Medical Decision Making Initially through triage the patient had some complaints of shortness of breath, chest discomfort. For me, the patient's main complaints were nausea without vomiting, low back pain, fatigue, and lower abdominal pain. Heart and lung sounds are normal to auscultation. The patient does not appear in any respiratory or acute distress. There is some mild reproducible lower abdominal tenderness to palpation. The abdomen is soft, nondistended. EKG did not have any morphology consistent with ST elevation myocardial infarction. Labs have been mostly unremarkable including CBC, CMP, negative troponin, normal thyroid function, and normal urinalysis. Chest x-ray does not show any pneumonia, pleural effusions, pneumothorax, widened mediastinum, or any other acute process. CT of the abdomen and pelvis shows diverticulosis without diverticulitis, but otherwise no acute process or etiology of the patient's lower abdominal pain. Vital signs have been reassuring throughout her ED course including being afebrile. For all these reasons patient appears safe for discharge home at this time. She has been instructed to follow-up with primary care. She was given a prescription for Zofran ODT. She will return to the emergency department with any worsening of her symptoms or with any acute distress. Critical Care Time: No Critical care attestation.: If time is entered above; I have spent that time in minutes in the direct care of this critically ill patient, excluding procedure time. ED Disposition Clinical Impression: Nausea without vomiting Abdominal pain Qualifiers: Abdominal location: lower abdomen, unspecified Qualified Code(s): R10.30 - Lower abdominal pain, unspecified Back pain Qualifiers: Back pain location: low back pain Chronicity: unspecified Back pain laterality: unspecified Sciatica presence: without sciatica Qualified Code(s): M54.5 - Low back pain Disposition: 01 HOME / SELF CARE / HOMELESS Is pt being admited?: No Condition: Stable Instructions: Nausea, Adult, Abdominal Pain, Adult, Abdominal Pain (ED) Additional Instructions: Please follow-up with your primary care physician and administrative medical director as previously scheduled. Take all medications as prescribed. Return to the emergency department with any worsening of your symptoms, new or concerning symptoms not addressed during this current emergency department visit, or with any acute distress. 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
--- NOTE | 2020-11-09 17:33 | Cat Scan Report ---
CT ABDOMEN AND PELVIS WITHOUT CONTRAST INDICATION / CLINICAL INFORMATION: Abd pain. TECHNIQUE: Axial CT images were obtained through the abdomen and pelvis without IV contrast. All CT scans at this location are performed using CT dose reduction for ALARA by means of automated exposure control. COMPARISON: 10/30/2015. FINDINGS: LOWER CHEST: No significant abnormality. LIVER: No significant abnormality. GALLBLADDER: No significant abnormality. BILE DUCTS: No significant abnormality. PANCREAS: Calcifications without acute abnormality. SPLEEN: No significant abnormality. ADRENALS: No significant abnormality. RIGHT KIDNEY / URETER: No significant abnormality. LEFT KIDNEY / URETER: No significant abnormality. STOMACH / SMALL BOWEL: No significant abnormality. COLON: Diffuse diverticulosis without acute diverticulitis. APPENDIX: Nonvisualized PERITONEUM: No free fluid. No free air. No fluid collection. LYMPH NODES: No significant adenopathy. AORTA / ARTERIES: Mild atherosclerotic calcification without acute abnormality. IVC / VEINS: No significant abnormality. URINARY BLADDER: No significant abnormality. REPRODUCTIVE ORGANS: No significant abnormality. ADDITIONAL FINDINGS: None. SKELETAL SYSTEM: No acute abnormality. IMPRESSION: 1. Negative for acute abdominopelvic abnormality. 2. Diffuse colonic diverticulosis without evidence of diverticulitis. 3. Other chronic findings as above. Signer Name: Sage Benitez MD Signed: 11/09/2020 5:28 PM Workstation Name: [email or web address]
[2020-11-09 18:26] LABS: Bacteria,Urine 1+ /HPF (Negative); Bilirubin,Urine NEG (Negative); Blood,Urine NEG (Negative); Color,Urine Yellow (Yellow); Hyaline Casts,Urine 1 /LPF; Mucus,Urine 1+ /HPF; Urobilinogen,Urine < 2.0 mg/dL (<2.0)
--- NOTE | 2020-11-10 10:16 | Electrocardiograph Report ---
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
== END 2020-11-09 19:47 | disposition home or self-care (01) ==
LOC: ED 15:18
DX: R10.30 Lower abdominal pain, unspecified (principal); M54.5 Low back pain; R11.2 Nausea with vomiting, unspecified; I11.0 Hypertensive heart disease with heart failure; E11.8 Type 2 diabetes mellitus with unspecified complications; J45.909 Unspecified asthma, uncomplicated; N63.0 Unspecified lump in unspecified breast; Z98.890 Other specified postprocedural states
CPT/HCPCS: 36415; 71046; 74019; 74176; 80053; 81001; 83880; 84443; 84484; 85025; 93005; 99285; Q0162